=== PATIENT | male | born 1980 | race American Indian/Alaskan Native ===

== ENCOUNTER 2016-07-28 14:00 | Inpatient (IN) | payer OTHER ==
[2016-07-28] MEDS ORDERED: TYLENOL PO ONE (14:55)
--- NOTE | 2016-07-28 14:58 | Emergency Department Report ---
Chief Complaint: Dyspnea/Respdistress Stated Complaint: SOB Time Seen by Provider: 07/28/16 14:54 - HPI History of Present Illness: Patient is a 32-year-old male who presents to ED complaining of cough and difficulty breathing 4 days. Patient states he is visiting from [place] and has had yellow sputum productive cough 4 days. Patient admits he feels muscle aches and generalized all over his body. Patient reports history of asthma on nebulizer albuterol inhaler and Tussin X. Patient states he is not have his medications as he is visiting from [place]. Patient denies nausea vomiting abdominal pain chest pain, - ROS Review of Systems: As noted in HPI - Exam Vital Signs: Vital Signs 07/28/16 14:11 Temperature 101.7 F H Pulse Rate 102 H Respiratory 20 Rate Blood Pressure 142/86 O2 Sat by Pulse 99 Oximetry Physical Exam: GENERAL: Alert and oriented x3, no apparent distress, Normal Gait, atraumatic. MOUTH:Mouth is well hydrated and without lesions. Tonsils nonerythematous or swollen, Uvula midline, Tongue not elevated. Mucous membranes are moist. Posterior pharynx clear, no exudate or lesions. Patent airways. NECK: Supple. Non edematous, No carotid bruits. No lymphadenopathy or thyromegaly. LUNGS: Symetrical with respiration, No wheezing, no rales or crackles, CTAB. HEART: S1, S2 present, regular rate and rhythm without murmur, no rubs, no gallops. ABDOMEN: No organomegaly was noted,Positive bowel sounds, soft, and non- distended. . Nontender to palpation on all Quadrants, NO CVA tenderness. SKIN: Warm and dry, No lesions, No ulceration or induration present. MSE screening note: Focused history and physical exam performed. Due to findings the following was ordered: ED Medical Decision Making - Medical Decision Making Shortness of breath or protocol ordered. Patient is in no acute respiratory distress. Pulse DURATION AT 99%. MILD TACHYCARDIAC. PATIENT RECEIVED TYLENOL 975 MG FOR PAIN AND FEVER. PATIENT AWAITING TO BE SEEN BY ED PHYSICIAN. ED Disposition for MSE Condition: Stable
--- NOTE | 2016-07-28 16:35 | XRay Report ---
Chest 2 views: History: Shortness of breath. Findings: Normal cardiomediastinal silhouette. Trachea is midline. No consolidation, pneumothorax or pleural effusion. Impression: No acute cardiopulmonary findings.
[2016-07-28 17:03] LABS: Basophils % (Auto) 0.2 % (0.0-1.8); Eosinophils % (Auto) 3.8 % (0.0-4.3); Hematocrit 47.8 % (35.5-45.6); Hemoglobin 15.7 gm/dl (11.8-15.2); Mean Corpuscular HGB Conc 33 % (32-34); Mean Corpuscular Hemoglobin 30 pg (28-32); Mean Corpuscular Volume 90 fl (84-94); Platelet Count 246 K/mm3 (140-440); Red Blood Count 5.32 M/mm3 (3.65-5.03); Red Cell Distribution Width 14.3 % (13.2-15.2); White Blood Count 8.7 K/mm3 (4.5-11.0)
[2016-07-28 17:15] LABS: BUN/Creatinine Ratio 6.25; Blood Urea Nitrogen 5 mg/dL (9-20); Calcium 8.6 mg/dL (8.4-10.2); Carbon Dioxide 21 mmol/L (22-30); Chloride 100.1 mmol/L (98-107); Glucose 131 mg/dL (75-100); Potassium 3.6 mmol/L (3.6-5.0); Sodium 138 mmol/L (137-145)
[2016-07-28 17:16] LABS: Anion Gap 21 mmol/L
[2016-07-28 17:20] LABS: Bilirubin,Urine NEG (Negative); Blood,Urine NEG (Negative); Ketones,Urine NEG (Negative); Leukocyte Esterase,Urine NEG (Negative); Mucus,Urine FEW /HPF; Nitrite,Urine NEG (Negative); Protein,Urine <15 mg/dL mg/dL (Negative)
--- NOTE | 2016-07-28 17:59 | Emergency Department Report ---
ED General Adult HPI - General Chief complaint: Dyspnea/Respdistress Stated complaint: SOB Time Seen by Provider: 07/28/16 17:57 Source: patient Mode of arrival: Ambulatory Limitations: No Limitations - History of Present Illness Initial comments: Patient has a history of asthma and he uses home nebs. He states that he's had some persistent wheezing but hasn't had medication for his machine. He states that his cough is been productive of yellow sputum. He presents with a fever of 101.7. His pulse-oximetry was 100% on arrival. On my encounter the patient' s pulse oximetry was 92%. He was completely lucid and asking for a prescription for his home nebs solution. While I was obtaining his history he had a coughing paroxysm. This lasted a few seconds. The patient began to lose consciousness. I looked at his monitor and noted that his plethysmography waveform had disappeared. At the same time the patient had myoclonic jerking and completely lost consciousness. I could not feel a pulse. The episode lasted perhaps 20 seconds. Then, the patient was assisted into a supine position where upon he regained consciousness. He asked me "what happened?" I told him what I had observed. His plethysmography wave returned to a rate in the 80s with a pulse oximetry of 97%. The patient then told me that his brother told him he had another "episode like this". I asked him if his brothers said he had a seizure. He said that he didn't state that. Apparently he had a another syncopal type episode. This event was very dramatic. It was associated with a loss of circulation and plethysmography as well as a pulse oximetry of 0. In addition the patient had a brief seizure. He did not have a hall monitor at that time. However his plethysmography waveform was completely absent and he had no apparent circulation associated with a global loss of cerebral perfusion. I would say that the patient therefore had a brief cardiac arrest. -: days(s) Severity scale (0 -10): 0 Associated Symptoms: cough, fever/chills Treatments Prior to Arrival: none - Related Data Allergies Allergy/AdvReac Type Severity Reaction Status Date / Time No Known Allergies Allergy Unverified 07/28/16 14:17 ED Review of Systems ROS: Stated complaint: SOB Other details as noted in HPI Constitutional: denies: chills, fever Eyes: denies: eye pain, eye discharge, vision change ENT: denies: ear pain, throat pain Respiratory: cough, wheezing Cardiovascular: denies: chest pain, palpitations Endocrine: no symptoms reported Gastrointestinal: denies: abdominal pain, nausea, diarrhea Genitourinary: denies: urgency, dysuria Musculoskeletal: denies: back pain, joint swelling, arthralgia Skin: denies: rash, lesions Neurological: denies: headache, weakness, paresthesias Psychiatric: denies: anxiety, depression Hematological/Lymphatic: denies: easy bleeding, easy bruising ED Past Medical Hx - Past Medical History Hx Asthma: Yes - Surgical History Past Surgical History?: No - Social History Smoking Status: Never Smoker Substance Use Type: None ED Physical Exam - General Limitations: No Limitations General appearance: alert, in no apparent distress, obese (morbid ) - Head Head exam: Present: atraumatic, normocephalic - Eye Eye exam: Present: normal appearance, PERRL, EOMI. Absent: scleral icterus - ENT ENT exam: Present: normal exam, mucous membranes moist - Neck Neck exam: Present: normal inspection - Respiratory Respiratory exam: Present: rhonchi, decreased breath sounds. Absent: accessory muscle use - Cardiovascular Cardiovascular Exam: Present: regular rate, normal rhythm. Absent: systolic murmur, diastolic murmur, rubs, gallop - GI/Abdominal GI/Abdominal exam: Present: soft, normal bowel sounds. Absent: distended, tenderness, guarding, rebound - Rectal Rectal exam: Present: deferred - Extremities Exam Extremities exam: Present: normal inspection. Absent: pedal edema, joint swelling, calf tenderness - Back Exam Back exam: Present: normal inspection - Neurological Exam Neurological exam: Present: alert, oriented X3, CN II-XII intact. Absent: motor sensory deficit - Psychiatric Psychiatric exam: Present: normal affect, normal mood - Skin Skin exam: Present: warm, dry, intact, normal color. Absent: rash ED Course Vital Signs 07/28/16 07/28/16 14:11 16:23 Temperature 101.7 F H Pulse Rate 102 H 100 H Respiratory 20 16 Rate Blood Pressure 142/86 O2 Sat by Pulse 99 100 Oximetry - Reevaluation(s) Reevaluation #1: The patient suffered a syncopal episode associated with pulselessness and myoclonic jerking. Therefore I would term as a brief cardiac arrest. I have recommended strongly upgrading his nursing observation in lieu of this. I spoke to Dr. Cordero regarding the above event. I would recommend ICU placement at this time. The patient was sent to CT for an angiogram to exclude an atypical presentation of a pulmonary embolism. This is currently pending. He was hemodynamically stable after this event. I have asked the nurses to place him on a hall monitor. 07/28/16 19:13 ED Medical Decision Making - Lab Data Result diagrams: 07/28/16 16:24 07/28/16 16:24 Laboratory Results - last 24 hr 07/28/16 07/28/16 07/28/16 16:23 16:24 16:24 WBC 8.7 RBC 5.32 H Hgb 15.7 H Hct 47.8 H MCV 90 MCH 30 MCHC 33 RDW 14.3 Plt Count 246 Lymph % (Auto) 3.8 L [place] % (Auto) 15.1 H Eos % (Auto) 3.8 Baso % (Auto) 0.2 Lymph # 0.3 L [place] # 1.3 H Eos # 0.3 Baso # 0.0 Seg Neutrophils % 77.1 H Seg Neutrophils # 6.7 Sodium 138 Potassium 3.6 Chloride 100.1 Carbon Dioxide 21 L Anion Gap 21 BUN 5 L Creatinine 0.8 Estimated GFR > 60 BUN/Creatinine Ratio 6.25 Glucose 131 H Calcium 8.6 Troponin T < 0.010 Urine Color Yellow Urine Turbidity Clear Urine pH 7.0 Ur Specific [place] 1.020 Urine Protein <15 mg/dl Urine Glucose (UA) Neg Urine Ketones Neg Urine Blood Neg Urine Nitrite Neg Urine Bilirubin Neg Urine Urobilinogen 2.0 Ur Leukocyte Esterase Neg Urine WBC (Auto) 1.0 Urine RBC (Auto) 2.0 U Epithel Cells (Auto) < 1.0 Urine Mucus Few - EKG Data EKG shows normal: sinus rhythm, axis, intervals, QRS complexes, ST-T waves Rate: normal - EKG Data Interpretation: other (some sinus arrhythmia) - Radiology Data Radiology results: report reviewed (CT imaging was negative) interpreted by me: Chest x-ray no acute process Critical Care Time: Yes Critical care time in (mins) excluding proc time.: 60 Critical care attestation.: If time is entered above; I have spent that time in minutes in the direct care of this critically ill patient, excluding procedure time. ED Disposition Clinical Impression: Cardiac arrest, Cough syncope Upper respiratory infection Qualifiers: URI type: unspecified URI Qualified Code(s): J06.9 - Acute upper respiratory infection, unspecified Disposition: OP ADMITTED IP TO THIS HOSP Is pt being admited?: Yes Does the pt Need Aspirin: Yes Condition: Stable Instructions: Syncope (ED) Time of Disposition: 19:18
[2016-07-28] MEDS ORDERED: DUONEB 0.5 MG-3 MG/3 ML SOLN IH ONE (18:17)
[2016-07-28] MEDS ORDERED: NACL ONE (18:27)
--- NOTE | 2016-07-28 19:06 | Cat Scan Report ---
FINAL REPORT PROCEDURE: CT angiogram chest. TECHNIQUE: Computerized tomographic angiography of the chest was performed after the IV injection of iodinated nonionic contrast including image processing. The image data was postprocessed using 2-dimensional multiplanar reformatted (MPR) and 3-dimensional (MIP and/or volume rendered) techniques. HISTORY: Chest pain, cardiac arrest. COMPARISON: No prior studies are available for comparison. FINDINGS: The trachea and central bronchi appear normal. The thoracic aorta has a normal caliber without evidence of dissection. The pulmonary arteries enhance normally. There are no definite filling defects to indicate pulmonary embolism. There is no mediastinal adenopathy. The heart size is normal. There are no pleural effusions. The lungs are clear and well expanded. The thoracic skeleton appears intact. IMPRESSION: Normal study.
[2016-07-28 19:12] LABS: ISTAT Base Excess -3; ISTAT HCO3 22.4; ISTAT PCO2 38.2 (35-45); ISTAT PH 7.375 (7.35-7.45); ISTAT PO2 98 (80-105); ISTAT SO2 97; ISTAT TCO2 24
[2016-07-28] MEDS ORDERED: LEVAQUIN 750MG/150ML 150 ML IV ONE (19:20)
[2016-07-28] MEDS ORDERED: TESSALON PERLES PO ONE (19:21)
[2016-07-28] MEDS ORDERED: BOOSTRIX IM ONE (19:48)
[2016-07-28] MEDS: ASPIRIN PO SCH (19:49)
[2016-07-28 20:30] LABS: INR 1.04 (0.87-1.13); Partial Thromboplastin Time 30.1 Sec. (24.2-36.6)
[2016-07-28 20:34] LABS: Alanine Aminotransferase 8 units/L (7-56); Albumin 3.8 g/dL (3.9-5); Albumin/Globulin Ratio 1.2 %; Alkaline Phosphatase 57 units/L (35-129); Bilirubin,Total 0.5 mg/dL (0.1-1.2); Creatine Kinase 175 units/L (55-170); Total Protein 6.9 g/dL (6.3-8.2)
[2016-07-28 20:37] LABS: Bilirubin,Direct < 0.2 mg/dL (0-0.2); Bilirubin,Indirect 0.3 mg/dL; Creatine Kinase MB < 1.0 ng/mL (0.0-4.0)
--- NOTE | 2016-07-28 21:17 | Event Note ---
Date: 07/28/16 See h/p in reports Asystole for 10 secs -witnessed by Dr Boyle Syncope Asthma exacerbation LJ
[2016-07-28] MEDS ORDERED: MILK OF MAGNESIA PO PRN (21:30)
[2016-07-28] MEDS ORDERED: DULCOLAX PR PRN (21:30)
[2016-07-28] MEDS ORDERED: TYLENOL PO PRN (21:30)
[2016-07-28] MEDS ORDERED: ZOFRAN IV PRN (21:30)
[2016-07-28] MEDS ORDERED: PERCOCET 5/325 PO PRN (21:30)
[2016-07-28] MEDS ORDERED: D5/0.45NS 1,000 ML IV SCH (22:00)
[2016-07-28] MEDS: LOVENOX SUB-Q SCH (22:12)
--- NOTE | 2016-07-28 22:56 | History and Physical Report ---
CHIEF COMPLAINT: Shortness of breath and wheezing. HISTORY OF PRESENT ILLNESS: A 36-year-old -[place] gentleman who comes in for persistent wheezing and shortness of breath. The patient ran out of his medication for his nebulizer machine. Cough productive of yellow sputum. Also, fever of 101.7. His pulse ox was 100% on arrival. When the ER physician went to see the patient, his pulse ox was 92%. The patient was completely lucid and was asking for a prescription of his home neb solutions. While the ER physician was obtaining the history, the patient apparently had lost consciousness and was pulseless for about 10-20 seconds, witnessed asystole as per Dr. Boyle by the ER physician. The patient was assisted into supine position and he gradually regained consciousness and said what happened to me. His plethysmography rate in the 80s with a pulse ox of 97%. Apparently, the patient had a similar episode like this before. As per the ER physician, he was convinced that the patient had asystole and there was no graph on the plethysmography and the pulse ox was 0%. Very unusual presentation, the patient recovered completely. No diaphoresis, no chest pain. PAST MEDICAL HISTORY: Significant for asthma, also, obstructive sleep apnea. PAST SURGICAL HISTORY: None. SOCIAL HISTORY: Does not smoke. FAMILY HISTORY: Significant for no hypertension, no diabetes. REVIEW OF SYSTEMS: CONSTITUTIONAL: Apparent cardiac arrest for 10-20 seconds as per the ER physician. HEENT: No sore throat, no postnasal drip. CARDIOVASCULAR AND RESPIRATORY: No chest pain, no palpitations. Wheezing and cough productive of yellow sputum present. GASTROINTESTINAL: No nausea, no vomiting, no diarrhea. MUSCULOSKELETAL: No joint pains. No muscle pains. CENTRAL NERVOUS SYSTEM: This patient had syncope and questionable cardiac arrest as per the ER physician, witnessed cardiac arrest as per the ER physician Dr. Boyle. PSYCHIATRIC: No depression, normal affect. SKIN: No rashes. A 14-point review of systems done other than the witnessed asystole for 10-20 seconds and cough productive of yellow sputum and wheezing. Review of systems is essentially negative. PHYSICAL EXAMINATION: GENERAL: Middle-aged male, obese, sitting in bed comfortably alert and oriented x4. VITAL SIGNS: Temperature 101.7, pulse is 102, respirations are 20, blood pressure 142/86, O2 sat 99. HEENT: Unremarkable. Pupils equal and reactive. NECK: Supple, no lymphadenopathy, no thyromegaly. LUNGS: Clear to auscultation and percussion. Good air entry. CARDIOVASCULAR: S1, S2 heard. No gallop, no murmur, no rub. Apical impulse in the left fifth intercostal space. ABDOMEN: Soft and benign. No guarding, no rigidity. Hernial orifices are normal. LUNGS: Bilateral inspiratory and expiratory rhonchi present. EXTREMITIES: Good pedal pulses. No pedal edema. CENTRAL NERVOUS SYSTEM: Alert and oriented x4 during my examination. Nonfocal exam. LABORATORY DATA: Significant for white count of 8700, H and H is 15.7 and 47.8, platelet count is 246,000. ABG significant for pH of 7.37, pCO2 of 38, pO2 of 98, bicarbonate of 22.4, CO2 of 24, sats of 97%. Sodium is 138, potassium is 3.6, chloride is 100, bicarbonate is 21, BUN and creatinine is 5 and 0.8, glucose is 131. LFTs are normal. Creatinine kinase is 175, albumin is 3.8. Urine was negative. ASSESSMENT AND PLAN: 1. Cardiac arrest witnessed by Dr. Boyle for 10-20 seconds. The patient is normal and alert the diagnosis of cardiac arrest. The patient is very much alert and oriented. No altered sensorium. No diaphoresis, which runs against event of cardiac arrest. The patient may have syncopized. No rhythm strips available. We will admit to ICU just because of this episode for observation for 12-24 hours and was transferred back to the regular telemetry. 2. Syncope. Syncope workup. Lexiscan and carotid duplex scan. 3. Asthma exacerbation. The patient was started on DuoNebs, Solu-Medrol 60 mg q.8, and Levaquin 750 mg IV q.24 hours. 4. Obstructive sleep apnea. The patient to follow with the nursing home physician as outpatient. 5. Obesity. The patient counseled. 6. Deep venous thrombosis prophylaxis, Lovenox 40 mg subcutaneous daily. JOB# [id number] VSM/NTS
[2016-07-29 00:36] LABS: Creatine Kinase 158 units/L (55-170)
[2016-07-29 00:37] LABS: Creatine Kinase MB < 1.0 ng/mL (0.0-4.0)
[2016-07-29] MEDS ORDERED: DUONEB 0.5 MG-3 MG/3 ML SOLN IH PRN (01:10)
[2016-07-29] MEDS ORDERED: PROVENTIL IH PRN (01:14)
[2016-07-29] MEDS ORDERED: DUONEB 0.5 MG-3 MG/3 ML SOLN IH ONE (01:40)
[2016-07-29] MEDS: DUONEB 0.5 MG-3 MG/3 ML SOLN IH SCH ×5 (01:51→21:00)
[2016-07-29] MEDS: LEVAQUIN 750MG/150ML 150 ML IV SCH ×2 (02:08→12:46)
[2016-07-29 05:40] LABS: Basophils % (Auto) 0.6 % (0.0-1.8); Eosinophils % (Auto) 3.4 % (0.0-4.3); Hematocrit 50.4 % (35.5-45.6); Hemoglobin 16.5 gm/dl (11.8-15.2); Mean Corpuscular HGB Conc 33 % (32-34); Mean Corpuscular Hemoglobin 29 pg (28-32); Mean Corpuscular Volume 90 fl (84-94); Platelet Count 220 K/mm3 (140-440); Red Blood Count 5.63 M/mm3 (3.65-5.03); Red Cell Distribution Width 14.5 % (13.2-15.2); White Blood Count 4.9 K/mm3 (4.5-11.0)
[2016-07-29 05:51] LABS: Alanine Aminotransferase 9 units/L (7-56); Albumin/Globulin Ratio 1.3 %; Alkaline Phosphatase 60 units/L (35-129); BUN/Creatinine Ratio 8.57; Bilirubin,Total 0.3 mg/dL (0.1-1.2); Blood Urea Nitrogen 6 mg/dL (9-20); Calcium 8.7 mg/dL (8.4-10.2); Carbon Dioxide 22 mmol/L (22-30); Chloride 104.4 mmol/L (98-107); Creatine Kinase 151 units/L (55-170); Glucose 126 mg/dL (75-100); Potassium 3.9 mmol/L (3.6-5.0); Sodium 142 mmol/L (137-145); Total Protein 7.2 g/dL (6.3-8.2)
[2016-07-29 05:53] LABS: Creatine Kinase MB < 1.0 ng/mL (0.0-4.0)
[2016-07-29 05:54] LABS: Anion Gap 20 mmol/L
--- NOTE | 2016-07-29 07:09 | Admit Criteria Form ---
Admission Criteria Documentation: CARDIAC ARRHYTHMIA Clinical Indications for Inpatient Care (Place 'X' for any and all applicable criteria): Ongoing inpatient care for cardiac arrhythmia needed as indicated by ANY ONE of the following(1)(2)(3)(4)(7) : [ ]I. Vital sign abnormality secondary to arrhythmia [ ]II. Patient has implantable cardioverter-defibrillator that has fired more than once within past 24 hours or needs immediate adjustment of settings that cannot be done other than in inpatient setting. [ ]III. Altered mental status [ ]IV. Resuscitated or aborted ventricular fibrillation or ventricular tachycardia in patient without implantable cardioverter- defibrillator [ ]V. Initiation of antiarrhythmic drug therapy is needed in patient at high risk of adverse effects as indicated by ANY ONE of the following: [ ]a) Significant structural heart disease (e.g., reduced ejection fraction, congenital heart disease, valvular heart disease) [ ]b) Prolonged QT interval [ ]c) Underlying sinus node or atrioventricular conduction disturbances [ ]d) Need for treatment with antiarrhythmic drugs that have significant proarrhythmic potential (e.g., dofetilide, sotalol, procainamide) [ ]. Acute myocardial ischemia as a consequence or suspected cause of arrhythmia [ X]VII. Syncope secondary to arrhythmia [ ]VIII. Heart failure (eg, pulmonary edema) secondary to arrhythmia) (26)(27) [ ]IX. Patient has implantable cardioverter defibrillator that has fired more than once within past 24hr or needs immediate adjustment of settings that cannot be done other than in inpatient setting.(8) [ ]X. Sustained (30 seconds or more of ventricular rhythm at more than 100 beats per minute) ventricular tachycardia and ANY ONE of the following: [ ]a) No previous known history of sustained ventricular tachycardia [ ]b) Structural heart disease (eg, reduced ejection fraction, hypertrophic cardiomyopathy, severe valvular disease) and without implantable cardioverter-defibrillator(24)(32)(33) [ ]c) Need for treatment of drug toxicity (eg, digitalis toxicity)(34 ) [ ]d) Need for electrical cardioversion Extended stay beyond goal length of stay may be needed for [ ]a) Hemodynamic stability [ ]b) Arrhythmia evaluation completed [ ]c) Reversible causes of arrhythmia eliminated or mitigated [ ]d) Specific antiarrhythmia treatment initiated as appropriate [ ]e) Anticoagulation requirements addressed (or anticoagulation not required). [ ]f) Medical comorbidities manageable at lower level of care The original [facility] content created by [facility] has been revised. The portions of the content which have been revised are identified through the use of italic text or in bold, and [facility] has neither reviewed nor approved the modified material. All other unmodified content is copyright [facility]. Please see references footnoted in the original [facility] edition 2016 Admission Criteria Met: Yes
[2016-07-29] MEDS ORDERED: LEXISCAN IV ONE ×2 (08:15→08:30)
--- NOTE | 2016-07-29 08:42 | Progress Note ---
Assessment and Plan Assessment and plan: --Posttussive syncope No new episodes since admission Supportive care, cough medicine --Stress test negative for reversible ischemia. Normal left ventricular function and ejection fraction Cardiology following --Acute exacerbation of bronchial asthma/acute bronchitis Oxygen titrated to O2 sats more than 90%, nebulizers, high-dose steroids, IV antibiotics Inhalation steroids, pulmonary following --Morbid obesity Possible obstructive sleep apnea/? Obesity hypoventilation syndrome Needs outpatient sleep study. CPAP or BiPAP at night if needed Pulmonary following Counseling done patient advised that modification and exercise as tolerated and weight reduction when medically stable Benefit from outpatient bariatric surgical evaluation for weight reduction program when stable --DVT prophylaxis; with Lovenox Closely monitor the patient and adjust the management as needed Consults and recommendations noted and appreciated History Interval history: Patient Seen and evaluated in his room this morning medical records reviewed No new episodes of syncope or cough Patient denies chest pain or shortness of breath Alert awake oriented 3 not in acute distress Vital signs reviewed Hospitalist Physical - Constitutional Vitals: Temp Pulse Resp BP Pulse Ox 97.8 F 61 16 125/76 96 07/29/16 07:59 07/29/16 07:50 07/29/16 07:50 07/29/16 06:14 07/29/16 07:58 General appearance: Present: no acute distress, well-nourished, obese (morbidly obese) - EENT Eyes: Present: PERRL, EOM intact - Neck Neck: Present: supple, normal ROM - Respiratory Respiratory effort: normal Respiratory: bilateral: diminished, rhonchi (occasional), negative: rales, wheezing - Cardiovascular Rhythm: regular Heart Sounds: Present: S1 & S2 - Extremities Extremities: no ischemia, pulses intact, pulses symmetrical Peripheral Pulses: within normal limits - Abdominal General gastrointestinal: soft, non-tender, non-distended, normal bowel sounds - Integumentary Integumentary: Present: clear, warm - Psychiatric Psychiatric: appropriate mood/affect, cooperative - Neurologic Neurologic: CNII-XII intact, moves all extremities Results - Labs CBC & Chem 7: 07/29/16 04:35 07/29/16 04:35 Labs: Laboratory Last Values WBC 4.9 K/mm3 (4.5-11.0) 07/29/16 04:35 RBC 5.63 M/mm3 (3.65-5.03) H 07/29/16 04:35 Hgb 16.5 gm/dl (11.8-15.2) H 07/29/16 04:35 Hct 50.4 % (35.5-45.6) H 07/29/16 04:35 MCV 90 fl (84-94) 07/29/16 04:35 MCH 29 pg (28-32) 07/29/16 04:35 MCHC 33 % (32-34) 07/29/16 04:35 RDW 14.5 % (13.2-15.2) 07/29/16 04:35 Plt Count 220 K/mm3 (140-440) 07/29/16 04:35 Lymph % (Auto) 10.5 % (13.4-35.0) L 07/29/16 04:35 [place] % (Auto) 8.6 % (0.0-7.3) H 07/29/16 04:35 Eos % (Auto) 3.4 % (0.0-4.3) 07/29/16 04:35 Baso % (Auto) 0.6 % (0.0-1.8) 07/29/16 04:35 Lymph # 0.5 K/mm3 (1.2-5.4) L 07/29/16 04:35 [place] # 0.4 K/mm3 (0.0-0.8) 07/29/16 04:35 Eos # 0.2 K/mm3 (0.0-0.4) 07/29/16 04:35 Baso # 0.0 K/mm3 (0.0-0.1) 07/29/16 04:35 Seg Neutrophils % 76.9 % (40.0-70.0) H 07/29/16 04:35 Seg Neutrophils # 3.8 K/mm3 (1.8-7.7) 07/29/16 04:35 PT 13.5 Sec. (12.2-14.9) 07/28/16 19:48 INR 1.04 (0.87-1.13) 07/28/16 19:48 APTT 30.1 Sec. (24.2-36.6) 07/28/16 19:48 POC ABG pH 7.375 (7.35-7.45) 07/28/16 19:06 POC ABG pCO2 38.2 (35-45) 07/28/16 19:06 POC ABG pO2 98 (80-105) 07/28/16 19:06 POC ABG HCO3 22.4 07/28/16 19:06 POC ABG Total CO2 24 07/28/16 19:06 POC ABG O2 Sat 97 07/28/16 19:06 POC ABG Base Excess -3 07/28/16 19:06 FiO2 28 % 07/28/16 19:06 Sodium 142 mmol/L (137-145) 07/29/16 04:35 Potassium 3.9 mmol/L (3.6-5.0) 07/29/16 04:35 Chloride 104.4 mmol/L (98-107) 07/29/16 04:35 Carbon Dioxide 22 mmol/L (22-30) 07/29/16 04:35 Anion Gap 20 mmol/L 07/29/16 04:35 BUN 6 mg/dL (9-20) L 07/29/16 04:35 Creatinine 0.7 mg/dL (0.8-1.5) L 07/29/16 04:35 Estimated GFR > 60 ml/min 07/29/16 04:35 BUN/Creatinine Ratio 8.57 % 07/29/16 04:35 Glucose 126 mg/dL (75-100) H 07/29/16 04:35 Hemoglobin A1c 6.0 % (4-6) 07/28/16 21:54 Lactic Acid 1.0 mmol/L (0.7-2.0) 07/28/16 19:48 Calcium 8.7 mg/dL (8.4-10.2) 07/29/16 04:35 Magnesium 2.0 mg/dL (1.7-2.3) 07/28/16 19:48 Total Bilirubin 0.3 mg/dL (0.1-1.2) 07/29/16 04:35 Direct Bilirubin < 0.2 mg/dL (0-0.2) 07/28/16 19:48 Indirect Bilirubin 0.3 mg/dL 07/28/16 19:48 AST 13 units/L (5-40) 07/29/16 04:35 ALT 9 units/L (7-56) 07/29/16 04:35 Alkaline Phosphatase 60 units/L (35-129) 07/29/16 04:35 Total Creatine Kinase 151 units/L (55-170) 07/29/16 04:35 CK-MB (CK-2) < 1.0 ng/mL (0.0-4.0) 07/29/16 04:35 CK-MB (CK-2) Rel Index 0.6 (0-4) 07/29/16 04:35 Troponin T < 0.010 ng/mL (0.00-0.029) 07/29/16 04:35 NT-Pro-B Natriuret Pep 38.54 pg/mL (0-450) 07/28/16 19:48 Total Protein 7.2 g/dL (6.3-8.2) 07/29/16 04:35 Albumin 4.0 g/dL (3.9-5) 07/29/16 04:35 Albumin/Globulin Ratio 1.3 % 07/29/16 04:35 Urine Color Yellow (Yellow) 07/28/16 16:23 Urine Turbidity Clear (Clear) 07/28/16 16:23 Urine pH 7.0 (5.0-7.0) 07/28/16 16:23 Ur Specific [place] 1.020 (1.003-1.030) 07/28/16 16:23 Urine Protein <15 mg/dl mg/dL (Negative) 07/28/16 16:23 Urine Glucose (UA) Neg mg/dL (Negative) 07/28/16 16:23 Urine Ketones Neg mg/dL (Negative) 07/28/16 16:23 Urine Blood Neg (Negative) 07/28/16 16:23 Urine Nitrite Neg (Negative) 07/28/16 16:23 Urine Bilirubin Neg (Negative) 07/28/16 16:23 Urine Urobilinogen 2.0 mg/dL (<2.0) 07/28/16 16:23 Ur Leukocyte Esterase Neg (Negative) 07/28/16 16:23 Urine WBC (Auto) 1.0 /HPF (0.0-6.0) 07/28/16 16:23 Urine RBC (Auto) 2.0 /HPF (0.0-6.0) 07/28/16 16:23 U Epithel Cells (Auto) < 1.0 /HPF (0-13.0) 07/28/16 16:23 Urine Mucus Few /HPF 07/28/16 16:23
--- NOTE | 2016-07-29 11:58 | Consultation ---
History of Present Illness Consult date: 07/29/16 Consult reason: syncope History of present illness: 36 YO man with h/o asthma and untreated LJ who presented to ED due to episodes of severe coughing and associated syncope. He had recurrent episode of coughing while in ED and subsuquently lost consciousness. He was felt to be pulse-less for about 10 seconds but was not on telemetry at the time. He thinks he had a similar episode of post-tussive syncope several years ago. He has been diagnosed with possible bronchitis. He underwent MPI today which preliminarily revealed no significant myocardial ischemia and normal LVEF. ECG reveals sinus arrhythmia with no significant abnormalities. Past History Past Medical History: other (Asthma, sleep apnea) Social history: smoking (Previous smoker) Family history: CAD (Mother of [place] in her 30s) Medications and Allergies Allergies Allergy/AdvReac Type Severity Reaction Status Date / Time No Known Allergies Allergy Unverified 07/28/16 14:17 Home Medications Medication Instructions Recorded Confirmed Last Taken Type No Known Home Medications [No 07/28/16 07/28/16 Unknown History Reported Home Medications] Active Meds: Active Medications Acetaminophen (Tylenol) 650 mg PO Q4H PRN PRN Reason: Pain MILD(1-3)/Fever >100.5/BRASHER Albuterol (Proventil) 2.5 mg IH Q3HRT PRN PRN Reason: Shortness Of Breath Albuterol/Ipratropium (Duoneb 0.5 Mg-3 Mg/3 Ml Soln) 1 ampul IH Q6HRT [facility] Last Admin: 07/29/16 07:36 Dose: 1 ampul Aspirin (Aspirin) 325 mg PO QDAY [facility] Last Admin: 07/28/16 19:49 Dose: 325 mg Bisacodyl (Dulcolax) 10 mg SD QDAY PRN PRN Reason: Constipation unrelieved by MOM Enoxaparin Sodium (Lovenox) 40 mg SUB-Q QDAY [facility] Last Admin: 07/28/16 22:12 Dose: 40 mg Hydromorphone HCl (Dilaudid) 0.5 mg IV Q3H PRN PRN Reason: Pain , Severe (7-10) Dextrose/Sodium Chloride (D5/0.45ns) 1,000 mls @ 75 mls/hr IV DIRECT [facility] Last Admin: 07/29/16 04:47 Dose: 75 mls/hr Levofloxacin/Dextrose (Levaquin 750mg/150ml) 150 mls @ 100 mls/hr IV Q24HR BILL PRN Reason: Protocol Last Admin: 07/29/16 02:08 Dose: 100 mls/hr Influenza Virus Vaccine Quadrival (Fluarix Quad [id number](36 Mos+)) 60 mcg IM .ONCE ONE Stop: 07/29/16 12:01 Magnesium Hydroxide (Milk Of Magnesia) 30 ml PO Q4H PRN PRN Reason: Constipation Methylprednisolone Sodium Succinate (Solu-Medrol) 60 mg IV Q8H [facility] Last Admin: 07/29/16 02:11 Dose: 60 mg Ondansetron HCl (Zofran) 4 mg IV Q8H PRN PRN Reason: N/V unrelieved by Reglan Oxycodone/Acetaminophen (Percocet 5/325) 1 tab PO Q6H PRN PRN Reason: Pain, Moderate (4-6) Pneumococcal Polyvalent Vaccine (Pneumovax 23) 0.5 ml IM .ONCE ONE Stop: 07/29/16 12:01 Review of Systems All systems: negative (per hpi) Physical Examination Vital Signs Temp Pulse Resp BP Pulse Ox 101.7 F H 102 H 20 142/86 99 07/28/16 14:11 07/28/16 14:11 07/28/16 14:11 07/28/16 14:11 07/28/16 14:11 General appearance: no acute distress, obese HEENT: Positive: EOMI, Pallor Neck: Positive: neck supple, trachea midline Cardiac: Positive: Reg Rate and Rhythm. Negative: Audible Murmur Lungs: Positive: clear to auscultation, Normal Breath Sounds Neuro: Positive: Grossly Intact Abdomen: Positive: Soft, Active Bowel Sounds Skin: Positive: Clear Extremities: Absent: edema Results 07/29/16 04:35 07/29/16 04:35 Cardiac Enzymes 07/28/16 07/29/16 Range/Units 23:38 04:35 AST 13 (5-40) units/L CK-MB (CK-2) < 1.0 < 1.0 (0.0-4.0) ng/mL CBC 07/29/16 Range/Units 04:35 WBC 4.9 (4.5-11.0) K/mm3 RBC 5.63 H (3.65-5.03) M/mm3 Hgb 16.5 H (11.8-15.2) gm/dl Hct 50.4 H (35.5-45.6) % Plt Count 220 (140-440) K/mm3 Lymph # 0.5 L (1.2-5.4) K/mm3 Guthrie # 0.4 (0.0-0.8) K/mm3 Eos # 0.2 (0.0-0.4) K/mm3 Baso # 0.0 (0.0-0.1) K/mm3 Comprehensive Metabolic Panel 07/29/16 Range/Units 04:35 Sodium 142 (137-145) mmol/L Potassium 3.9 (3.6-5.0) mmol/L Chloride 104.4 (98-107) mmol/L Carbon Dioxide 22 (22-30) mmol/L BUN 6 L (9-20) mg/dL Creatinine 0.7 L (0.8-1.5) mg/dL Glucose 126 H (75-100) mg/dL Calcium 8.7 (8.4-10.2) mg/dL AST 13 (5-40) units/L ALT 9 (7-56) units/L Alkaline Phosphatase 60 (35-129) units/L Total Protein 7.2 (6.3-8.2) g/dL Albumin 4.0 (3.9-5) g/dL Assessment and Plan Post Tussive Syncope MPI today preliminarily revealed no significant myocardial ischemia and normal LVEF Asthma/Bronchitis Morbid obesity and untreated LJ Recommend: OK to transfer out of ICU Check echocardiogram Continue current therapy including cough suppression Pt needs outpatient treatment for LJ.
[2016-07-29] MEDS ORDERED: FLUARIX QUAD 2016-2017(36 MOS+) IM ONE (12:00)
[2016-07-29] MEDS ORDERED: PNEUMOVAX 23 IM ONE (12:00)
[2016-07-29] MEDS: LOVENOX SUB-Q SCH (12:17)
[2016-07-29] MEDS: DILAUDID IV PRN (12:17)
[2016-07-29] MEDS: ASPIRIN PO SCH (12:18)
--- NOTE | 2016-07-29 14:40 | Consultation ---
History of Present Illness Consult date: 07/29/16 Reason for consult: cough, asthma History of present illness: This is 36 year old male admitted with cough with productive yellow sputum and shortness of breath and wheezing. Patient has three episodes of cough syncopy.Patient has history of Asthma.Patient has history of smoking cigars. Smoking 1 cigar/ day x 10 years.Patient denies alcohol or drug abuse. Patient disabled Attention deficit syndrome. No known allergies. Patient not . Patient has one chaild. Past History Past Medical History: other (Asthma, sleep apnea) Social history: smoking (Smokes cigars.) Family history: CAD (Mother of [place] in her 30s) Medications and Allergies Allergies Allergy/AdvReac Type Severity Reaction Status Date / Time No Known Allergies Allergy Unverified 07/28/16 14:17 Home Medications Medication Instructions Recorded Confirmed Last Taken Type No Known Home Medications [No 07/28/16 07/28/16 Unknown History Reported Home Medications] Active Meds: Active Medications Acetaminophen (Tylenol) 650 mg PO Q4H PRN PRN Reason: Pain MILD(1-3)/Fever >100.5/BRASHER Albuterol (Proventil) 2.5 mg IH Q3HRT PRN PRN Reason: Shortness Of Breath Albuterol/Ipratropium (Duoneb 0.5 Mg-3 Mg/3 Ml Soln) [address] [facility] Last Admin: 07/29/16 07:36 Dose: 1 ampul Aspirin (Aspirin) [address] [facility] Last Admin: 07/29/16 12:18 Dose: 325 mg Bisacodyl (Dulcolax) 10 mg AL QDAY PRN PRN Reason: Constipation unrelieved by MOM Enoxaparin Sodium (Lovenox) 40 mg SUB-Q QDAY [facility] Last Admin: 07/29/16 12:17 Dose: 40 mg Hydromorphone HCl (Dilaudid) 0.5 mg IV Q3H PRN PRN Reason: Pain , Severe (7-10) Last Admin: 07/29/16 12:17 Dose: 0.5 mg Dextrose/Sodium Chloride (D5/0.45ns) 1,000 mls @ 75 mls/hr IV DIRECT [facility] Last Admin: 07/29/16 04:47 Dose: 75 mls/hr Levofloxacin/Dextrose (Levaquin 750mg/150ml) 150 mls @ 100 mls/hr IV Q24HR [facility] PRN Reason: Protocol Last Admin: 07/29/16 12:46 Dose: 100 mls/hr Magnesium Hydroxide (Milk Of Magnesia) 30 ml PO Q4H PRN PRN Reason: Constipation Methylprednisolone Sodium Succinate (Solu-Medrol) [address] [facility] Last Admin: 07/29/16 12:18 Dose: 60 mg Ondansetron HCl (Zofran) 4 mg IV Q8H PRN PRN Reason: N/V unrelieved by Reglan Oxycodone/Acetaminophen (Percocet 5/325) 1 tab PO Q6H PRN PRN Reason: Pain, Moderate (4-6) Review of Systems All systems: negative Physical Examination Vital signs: Vital Signs Temp Pulse Resp BP Pulse Ox 101.7 F H 102 H 20 142/86 99 07/28/16 14:11 07/28/16 14:11 07/28/16 14:11 07/28/16 14:11 07/28/16 14:11 General appearance: no acute distress Eyes: non-icteric ENT: oropharynx moist Neck: supple, no JVD Effort: mildly labored Ascultation: Bilateral: wheezes, rhonchi Cardiovascular: regular rate and rhythm Gastrointestinal: normoactive bowel sounds, soft, non-tender Integumentary: normal Extremities: no cyanosis, no edema Musculoskeletal: no deformities Gait: other (an not assess now.) normal mental status, non-focal exam, pupils equal and round, CN II-XII normal mood appropriate Results - Laboratory Findings CBC and BMP: 07/29/16 04:35 07/29/16 04:35 ABG POC ABG pH 7.375 (7.35-7.45) 07/28/16 19:06 POC ABG pCO2 38.2 (35-45) 07/28/16 19:06 POC ABG pO2 98 (80-105) 07/28/16 19:06 POC ABG HCO3 22.4 07/28/16 19:06 POC ABG Total CO2 24 07/28/16 19:06 POC ABG O2 Sat 97 07/28/16 19:06 PT/INR, D-dimer PT 13.5 Sec. (12.2-14.9) 07/28/16 19:48 INR 1.04 (0.87-1.13) 07/28/16 19:48 Abnormal lab findings: Abnormal Labs 07/29/16 07/29/16 04:35 04:35 RBC 5.63 H Hgb 16.5 H Hct 50.4 H Lymph % (Auto) 10.5 L Rich % (Auto) 8.6 H Lymph # 0.5 L Seg Neutrophils % 76.9 H BUN 6 L Creatinine 0.7 L Glucose 126 H - Diagnostic Findings Chest x-ray: report reviewed (No acute cardiopulmonary findings.) CT scan - chest: report reviewed (Reported normal.) Assessment and Plan This is 36 year old male admitted with cough with productive yellow sputum and shortness of breath and wheezing. Patient has three episodes of cough syncopy.Patient has history of Asthma.Patient has history of smoking cigars. Smoking 1 cigar/ day x 10 years.Patient denies alcohol or drug abuse. Patient disabled Attention deficit syndrome. No known allergies. Patient not . Patient has one chaild. - Patient Problems (1) Cough syncope Current Visit: Yes Status: Acute Plan to address problem: Still coughing. No cough syncopy today. Robitussin Ac 10 ml po q 12 hours prn for severe cough. (2) Asthma attack Current Visit: Yes Status: Acute Plan to address problem: O2 supplementation 2 litres via nasal canula. Albuterol/atrovent aerosol treatments. Increase solumedral 100 mg I/V q 6 hours. Continue S/C Lovenox. (3) Acute bronchitis Current Visit: Yes Status: Acute Plan to address problem: Patient is on Levaquine.
[2016-07-29] MEDS ORDERED: ROBITUSSIN AC PO PRN (14:54)
[2016-07-29] MEDS ORDERED: ROBITUSSIN DM PO PRN (18:39)
[2016-07-30] MEDS: DUONEB 0.5 MG-3 MG/3 ML SOLN IH SCH ×2 (02:27→08:52)
[2016-07-30] MEDS: DILAUDID IV PRN ×2 (05:29→09:16)
[2016-07-30] MEDS: ASPIRIN PO SCH (09:19)
[2016-07-30] MEDS: LOVENOX SUB-Q SCH (09:20)
[2016-07-30] MEDS: LEVAQUIN 750MG/150ML 150 ML IV SCH (09:54)
--- NOTE | 2016-07-30 10:24 | Progress Note ---
Assessment and Plan Patient alert, awake. No acute respiratory distress. Still has some cough not as bad as before.O2 satuaration 97% on room air. Patient discharged to go home By Dr. Del Valle. Patient was given prescriptions for levaquine,prednisone in tapering doses, Tussines for cough.Patient also given prescription for percocet by Dr. Del Valle as per the patients request. I counselled the patient not to smoke. Can come to my office for pulmonary follow up. I told the patient clearly I can not take care general medical problems or pain medicine. Recommend to get primary doctor.Patient did not complain any sleep problems at this time.If he has any symptoms of sleep apnea, recommend sleep study as out patient. - Patient Problems (1) Cough syncope Current Visit: Yes Status: Acute Plan to address problem: Still has some cough.Not as bad as before. No cough syncopy today. Patient discharged by dr. Del Valle on tussinex. (2) Asthma attack Current Visit: Yes Status: Acute Plan to address problem: .. Patient breathing better today. alert,awake.No acute respiratory distress. patient walking in the room. Still has some cough, but better than yesterday. Patient discharged to go home by Dr. Del Valle 0n Levaquine 500mg po qd. Tussinex for cough prednisone in tapering doses. Percocet for pain. Patient requested. Counselled him not to smoke. Recommend to loose weight. (3) Acute bronchitis Current Visit: Yes Status: Acute Plan to address problem: Patient is on Levaquine. Subjective Date of service: 07/30/16 Interval history: Patient alert, awake. No acute respiratory distress. Still has some cough not as bad as before.O2 satuaration 97% on room air. Patient discharged to go home By Dr. Del Valle. Patient was given prescriptions for levaquine,prednisone in tapering doses, Tussines for cough.Patient also given prescription for percocet by Dr. Del Valle as per the patients request. I counselled the patient not to smoke. Recommend to loose weight. Can come to my Office for pulmonary follow up. I told the patient clearly I can not take care of general medical problems or pain medicine. Recommend to get primary doctor.Patient did not complain any sleep symptoms at this time. If he has any symptoms of sleep apnea. Recommend sleep study as out patient. Objective Vital Signs - 12hr 01/29/17 01/29/17 01/29/17 00:20 04:00 04:55 Temperature 97.6 F 98.3 F Pulse Rate 71 Pulse Rate [ 78 Anterior Bilateral Throughout] Pulse Rate [ 87 87 Right Dorsalis Pedis] Respiratory 18 20 Rate Respiratory 18 Rate [Anterior Bilateral Throughout] Blood Pressure 142/69 126/58 [Left Arm] O2 Sat by Pulse 96 100 Oximetry 07/30/16 07/30/16 07/30/16 05:05 07:26 08:52 Temperature 98.3 F Pulse Rate Pulse Rate [ 82 101 H Anterior Bilateral Throughout] Pulse Rate [ 88 Right Dorsalis Pedis] Respiratory 18 Rate Respiratory 18 18 Rate [Anterior Bilateral Throughout] Blood Pressure 148/77 [Left Arm] O2 Sat by Pulse Oximetry 07/30/16 07/30/16 08:55 09:06 Temperature Pulse Rate Pulse Rate [ 87 Anterior Bilateral Throughout] Pulse Rate [ Right Dorsalis Pedis] Respiratory Rate Respiratory 18 Rate [Anterior Bilateral Throughout] Blood Pressure [Left Arm] O2 Sat by Pulse 97 Oximetry Constitutional: no acute distress, alert Eyes: non-icteric ENT: oropharynx moist Neck: supple, no JVD Effort: mildly labored Ascultation: Bilateral: wheezes (Occassional wheezes.), rhonchi (Occassional ronchi.) Cardiovascular: regular rate and rhythm Gastrointestinal: normoactive bowel sounds, soft, non-tender Integumentary: normal Extremities: no cyanosis, no edema Neurologic: normal mental status, non-focal exam, pupils equal and round, CN II- XII normal Psychiatric: other (Argumentative.) CBC and BMP: 07/29/16 04:35 07/29/16 04:35 ABG, PT/INR, D-dimer: ABG POC ABG pH 7.375 (7.35-7.45) 07/28/16 19:06 POC ABG pCO2 38.2 (35-45) 07/28/16 19:06 POC ABG pO2 98 (80-105) 07/28/16 19:06 POC ABG HCO3 22.4 07/28/16 19:06 POC ABG Total CO2 24 07/28/16 19:06 POC ABG O2 Sat 97 07/28/16 19:06 PT/INR, D-dimer PT 13.5 Sec. (12.2-14.9) 07/28/16 19:48 INR 1.04 (0.87-1.13) 07/28/16 19:48 Abnormal lab findings: Abnormal Labs 07/29/16 07/29/16 07/30/16 04:35 04:35 07:38 RBC 5.63 H Hgb 16.5 H Hct 50.4 H Lymph % (Auto) 10.5 L Worth % (Auto) 8.6 H Lymph # 0.5 L Seg Neutrophils % 76.9 H BUN 6 L Creatinine 0.7 L Glucose 126 H POC Glucose 154 H
--- NOTE | 2016-07-30 10:41 | Progress Note ---
Assessment and Plan Post Tussive Syncope MPI preliminarily revealed no significant myocardial ischemia and normal LVEF Asthma/Bronchitis Morbid obesity and untreated JL Recommend: Check echocardiogram Continue current therapy including cough suppression Pt needs outpatient treatment for LJ. Subjective Date of service: 07/30/16 Interval history: No further episodes of syncope. MPI reviewed with patient. Objective Vital Signs Temp Pulse Pulse Pulse Pulse Resp Resp 07/30/16 09:06 87 18 07/30/16 08:55 07/30/16 08:52 101 H 18 07/30/16 07:26 98.3 F 88 18 07/30/16 05:05 82 18 07/30/16 04:55 98.3 F 78 87 20 18 07/30/16 04:00 71 07/30/16 00:20 97.6 F 87 18 07/29/16 21:35 07/29/16 21:10 80 20 07/29/16 21:00 76 20 07/29/16 19:53 98.1 F 80 20 07/29/16 16:00 98.2 F 76 18 07/29/16 15:37 74 18 07/29/16 15:24 80 18 07/29/16 12:00 87 13 07/29/16 11:00 81 14 07/29/16 10:56 74 15 BP BP Pulse Ox 07/30/16 09:06 07/30/16 08:55 97 07/30/16 08:52 07/30/16 07:26 148/77 07/30/16 05:05 07/30/16 04:55 126/58 100 07/30/16 04:00 07/30/16 00:20 142/69 96 07/29/16 21:35 96 07/29/16 21:10 07/29/16 21:00 95 07/29/16 19:53 158/83 96 07/29/16 16:00 157/90 99 07/29/16 15:37 07/29/16 15:24 07/29/16 12:00 110/54 07/29/16 11:00 95 07/29/16 10:56 98 - Physical Examination HEENT: Positive: EOMI, Pallor Neck: Positive: neck supple, trachea midline Cardiac: Positive: Reg Rate and Rhythm Lungs: Positive: clear to auscultation Neuro: Positive: Grossly Intact Abdomen: Positive: Soft, Active Bowel Sounds Skin: Positive: Clear Extremities: Absent: edema
--- NOTE | 2016-07-30 11:39 | Discharge Summary ---
Providers - Providers Date of Admission: 07/28/16 21:30 Date of discharge: 07/30/16 Attending physician: MARITZA FERNANDEZ 07/28/16 22:24 Consult to Physician [CONS] Urgent Consulting Provider: RAZ LEUNG Reason For Exam: ICU Admission Place consult to:: Checkering Machine Adjuster Notified:: yes Phone number called:: in CCU Was contact made?: Yes If yes, spoke with:: gilma Wells. nurse notified Dr. Olivera consult 07/29/2016 around Time called:: 00:27 Primary care physician: [facility] Hospitalization Reason for admission: posttussive syncope Condition: Stable Pertinent studies: MPI which showed no myocardial infarction or ischemia and normal ejection fraction. Carotid Doppler which showed less than 50% carotid stenosis. EKG no significant sinus arrhythmia. Hospital course: 36-year-old male presented with productive cough shortness of breath wheezing diagnosed with asthma bronchitis and posttussive syncope. Patient was admitted cough was treated asthma treated albuterol Atrovent nebulizes low-grade steroidal and empiric antibodies. Further workup included negative MPI from exam. Patient was cleared by cardiology. Cleared by pulmonology. Patient and family refused discharge became very rude and aggressive. Did not tell me why did not want to go home. Patient was up able to raise voice argue very loud and long without becoming short of breath or coughing at all. Brother at bedside also aggressive. Workup has been unremarkable. Patient has a history of posttussive syncope and states that Dr. in [facility] give some a certain amount of Percocet and Tussionex. States cannot take anything else. Will come form to these wishes to attempt to meet a happy medium with patient. Has no real reason to stay in the hospital at all at this time. Sats at 100. Cough was minimal at best. To speak however fuss get angry without any evidence of hypoxia cough or shortness of breath. Very demanding about medications. Attempts to tail patient to stop smoking and weight loss management and outpatient workup for obstructive sleep apnea appeared to fall on deaf ears for argument. Disposition: DISCHARGED TO HOME OR SELFCARE Time spent for discharge: 20 short becasue of behavior of pat and brother - Discharge Diagnoses (1) Acute bronchitis Status: Acute Comment: We'll continue Levaquin by mouth. Patient also receiving prednisone taper. And also Tussionex. (2) Asthma attack Status: Acute Comment: Pro-air given 2 puffs 4 times a day when necessary total smoking cessation follow-up with pulmonology for workup of obesity hypoventilation syndrome and obstructive sleep apnea. Weight loss discussed. (3) Cough syncope Status: Acute Comment: Tussionex as patient demands. (4) LJ (obstructive sleep apnea) Status: Acute Comment: Patient should have outpatient workup for obstructive sleep apnea. Core Measure Documentation - Palliative Care Palliative Care/ Comfort Measures: Not Applicable - Core Measures Any of the following diagnoses?: none Exam - Constitutional Vitals: Temp Pulse Resp BP Pulse Ox 98.3 F 87 18 148/77 97 07/30/16 07:26 07/30/16 09:06 07/30/16 09:06 07/30/16 07:26 07/30/16 08:55 General appearance: Present: no acute distress, well-nourished - EENT Eyes: Present: PERRL ENT: hearing intact, clear oral mucosa - Neck Neck: Present: supple, normal ROM - Respiratory Respiratory effort: normal Respiratory: bilateral: CTA - Cardiovascular Heart Sounds: Present: S1 & S2. Absent: rub, click - Extremities Extremities: pulses symmetrical, No edema Peripheral Pulses: within normal limits - Abdominal General gastrointestinal: Present: soft, non-tender, non-distended, normal bowel sounds, other (obese) - Integumentary Integumentary: Present: clear, warm, dry - Musculoskeletal Musculoskeletal: gait normal, strength equal bilaterally - Psychiatric Psychiatric: appropriate mood/affect, intact judgment & insight - Neurologic Neurologic: CNII-XII intact, moves all extremities Plan Activity: no restrictions Weight Bearing Status: Full Weight Bearing Diet: low carbohydrate Special Instructions: record daily weights, record daily BP diary, smoking cessation, other (follow-up LJ) Follow up with: PRIMARY CARE, [Primary Care Provider] - 3-5 Days Prescriptions: oxyCODONE /ACETAMINOPHEN [Percocet 5/325 mg] 2 tab PO Q6H PRN #120 tablet PRN Reason: Pain, Moderate (4-6)
[2016-07-30 13:02] VITALS: BP 147/74
--- NOTE | 2016-07-31 13:06 | Treadmill Report ---
THALLIUM STRESS TEST LEFT VENTRICLE: Left ventricular chamber size is within normal. Perfusion study demonstrates homogeneous uptake of the tracer in all segments, no significant perfusion defects identified. Gated analysis demonstrates normal left ventricular systolic function, ejection fraction 56%. CONCLUSION: Normal myocardial perfusion study. JOB# [id number] CA/NTS
--- NOTE | 2016-08-01 08:10 | Vascular Lab Report ---
CAROTID DUPLEX STUDY: RIGHT PSVEDV CCA PROX:[id number] CCA DIST:[id number] ICA PROX: 5713 ICA MID: 3815 ICA DIST: 6520 ECA: 102 VERT: 73 20 LEFT PSVEDV CCA PROX:[id number] CCA DIST:[id number] ICA PROX: 6314 ICA MID: 4919 ICA DIST: 4516 ECA: 100 VERT: 85 15 REASON FOR EXAM: Carotid artery stenosis/syncope. COMMENTS ON THE RIGHT: Doppler frequency analysis is consistent with 16 to 49 percent diameter reduction of the internal carotid artery. Minimal amount of plaque is seen. The common carotid artery is patent. The external carotid artery is patent. The vertebral artery has antegrade flow. COMMENTS ON THE LEFT: Doppler frequency analysis is consistent with 16 to 49 percent diameter reduction of the internal carotid artery. Minimal amount of plaque is seen. The common carotid artery is patent. The external carotid artery is patent. The vertebral artery has antegrade flow. IMPRESSION: Less than 50% diameter reduction in the internal carotid arteries bilaterally. Consider repeat carotid artery duplex in 12 months.
== END 2016-07-30 13:32 | disposition home or self-care (01) | DRG 202 ==
LOC: ED 14:00 → CC1 21:30 → 4A 07-29 13:28
PROVIDERS: ADMIT Internal Medicine; ATTEND Internal Medicine
PROC: 5A09357 Assistance with Respiratory Ventilation, Less than 24 Consecutive Hours, Continuous Positive Airway Pressure (ICD-10-PCS; principal; 2016-07-29)
DX: J45.901 Unspecified asthma with (acute) exacerbation (principal); I46.9 Cardiac arrest, cause unspecified; Z68.43 Body mass index [BMI] 50.0-59.9, adult; R55 Syncope and collapse; G47.33 Obstructive sleep apnea (adult) (pediatric); E66.01 Morbid (severe) obesity due to excess calories; J20.9 Acute bronchitis, unspecified; F17.210 Nicotine dependence, cigarettes, uncomplicated; Z82.49 Family history of ischemic heart disease and other diseases of the circulatory system; Z71.6 Tobacco abuse counseling
CPT/HCPCS: 36415; 71020; 71275; 78452; 80048; 80053; 80074; 81001; 82140; 82550; 82553; 82803; 82962; 83036; 83735; 83880; 84484; 85025; 85610; 85730; 87040; 87086; 90471; 90686; 90715; 90732; 93005; 93010; 93017; 93880; 94640; 94660; 94760; 96365; 96366; A9502; J1170; J1650; J1956; J2785; J2920; J2930; Q9967